=== PATIENT | female | born 1995 | race Caucasian/White ===

== ENCOUNTER 2019-09-13 09:38 | Outpatient (RCR) | payer OTHER, MEDICAID, SELFPAY ==
[2019-09-15] MEDS: RHO(D) IMMUNE GLOBULIN 300 MCG SYRINGE IM (14:33)
== END 2019-12-12 23:59 | disposition home or self-care (01) ==
LOC: ANHLAB 09:38
PROVIDERS: Visit Provider Advanced Practice Midwife
DX: O26.859 Spotting complicating pregnancy, unspecified trimester (principal); Z29.13 Encounter for prophylactic Rho(D) immune globulin; O36.0990 Maternal care for other rhesus isoimmunization, unspecified trimester, not applicable or unspecified; Z3A.00 Weeks of gestation of pregnancy not specified
CPT/HCPCS: 36415; 86900; 86901; 90384; 96372; J2790

== ENCOUNTER 2019-11-24 10:14 | Outpatient (CLI) | payer BC, OTHER, MEDICAID, SELFPAY ==
--- NOTE | 2019-11-24 10:55 | PC.NURSE ---
Laure Garcia notified of c/o leaking and negative ROM plus. OK to dc home.
[2019-11-24 10:58] VITALS: BP 100/58; PULSE 81
== END 2019-11-24 11:05 | disposition home or self-care (01) ==
PROVIDERS: Family Provider Advanced Practice Midwife; Visit Provider Advanced Practice Midwife
DX: O41.8X90 Other specified disorders of amniotic fluid and membranes, unspecified trimester, not applicable or unspecified (principal)
CPT/HCPCS: 59025; 84112

== ENCOUNTER 2019-12-08 14:57 | Outpatient (CLI) | payer OTHER, MEDICAID, SELFPAY ==
--- NOTE | ~2019-12-08 | US_ITS ---
EXAMINATION: US OB limited w BPP DATE: 12/08/2019 16:37 INDICATION: Leaking amniotic fluid during third trimester TECHNIQUE: Real-time pelvic ultrasound was performed. The interpreting radiologist was not present fo r the study. COMPARISON: None. FINDINGS: There is a single living fetus in vertex presentation. The placenta is anterior. heart rate is 161 beats per minute (bpm). The amniotic fluid index is 16.8 cm which is normal. Biophysical profile performed by the technologist: breathing (30 sec sustained breathing in 30 minutes): 2 out of 2 movement (3 gross body movements in 30 minutes): 2 out of 2 tone (one episode of cuudzxn-ikczvuzuy-hrudogp limb movement): 2 out of 2 Amniotic fluid pocket (2 cm): 2 out of 2 Total score: 8 out of 8 IMPRESSION: 1. Single living fetus in vertex presentation. 2. Biophysical profile 8 out of 8. 3. Normal amniotic fluid index. Reviewed, dictated and finalized at location A.
[2019-12-08 15:34] VITALS: PULSE 92; O2SAT 99
[2019-12-08 15:39] VITALS: PULSE 93; O2SAT 99
[2019-12-08 15:44] VITALS: PULSE 93; O2SAT 99
--- NOTE | 2019-12-08 16:05 | PC.NURSE ---
Ashley Garcia CNM informed of pt's arrival with c/o a large gush of fluid around 2330 last night and her underwear felt wet again as she was coming in. ROM plus was negative. FHT's were reactive, but 1 min variable down to 95-110 was noted. Decel started after a contraction had totally resolved. Informed of cxns. Order received for BPP and GAUTAM.
[2019-12-08 16:54] VITALS: PULSE 96
== END 2019-12-08 16:00 | disposition home or self-care (01) ==
LOC: ANHOBOP 15:36 → ANHOBPP 15:37
PROVIDERS: Visit Provider Obstetrics & Gynecology
DX: O42.90 Premature rupture of membranes, unspecified as to length of time between rupture and onset of labor, unspecified weeks of gestation (principal); Z3A.00 Weeks of gestation of pregnancy not specified
CPT/HCPCS: 59025; 76815; 76819; 84112; 99199

== ENCOUNTER 2020-01-01 06:15 | Inpatient (IN) | payer OTHER, MEDICAID, SELFPAY ==
[2020-01-01] VITALS (166 sets, daily range): BP systolic 77–119; BP diastolic 44–81; PULSE 54–97; RESP 18; TEMP 36.4–37; O2SAT 93–100; BMI 26.5
[2020-01-01 07:05] LABS: Basophils Percent Auto 0.3 % (0.2-1.2); Eosinophils Absolute Auto 0.1 K/mm3 (0-0.3); Eosinophils Percent Auto 1.6 % (0-4.4); Hematocrit 27.4 % (37.0-47.0); Hemoglobin 8.2 g/dL (12.0-15.0); Immature Granulocyte Absolute 0.03 K/mm3 (0.00-0.031); Immature Granulocyte Percent A 0.5 % (0-0.5); Lymphocytes Absolute Auto 1.84 K/mm3 (0.9-3.2); Mean Corpuscular HGB Conc 29.9 g/dl (32-36); Mean Corpuscular Hemoglobin 22.3 pg (26-34); Mean Corpuscular Volume 74.7 fl (80-100); Mean Platelet Volume 10.4 fl (7.4-10.4); Monocytes Absolute Auto 0.4 K/mm3 (0.1-0.6); Monocytes Percent Auto 6.2 % (2.6-8.5); Neutrophils Percent Auto 62.4 % (45.5-73.1); Platelet Count Result 263 k/mm3 (150-375); Red Blood Count 3.67 M/mm3 (4.2-5.4); Red Cell Distribution Width 16.6 % (11.5-14.5); White Blood Count 6.3 K/mm3 (4.5-10.0)
[2020-01-01] MEDS: LACTATED RINGERS 1,000 ML 125 ML IV CONT ×3 (07:07→13:44)
[2020-01-01] MEDS: OXYTOCIN 30 UNITS/NS 500 ML 30 UNITS/500 ML BAG IV CONT (07:15)
[2020-01-01 07:16] LABS: Platelet Estimate Adequate (Adequate)
[2020-01-01 07:18] LABS: Hypochromasia 1+ (NORMAL)
--- NOTE | 2020-01-01 07:39 | LDADM ---
This patient, Maru Jones, was admitted to Labor/Delivery/Recovery 106 on 01/01/20 at 06:15. Plans for labor, pain management and were discussed with patient. Patient/family oriented to hospital policies and general routines including ID bracelet, bed and alarms, visiting hours, pain management, procedures, bathroom and other care routines, personal items, smoking policy, room service/diet and guest tray routines, infant security routines, and visiting hours. Patient/Family are encouraged to report perceived risks to care and to ask questions if they do not understand what they are told or what they should do. See OBIX for further documentation.
--- NOTE | 2020-01-01 08:31 | WPDOBADMIT ---
Obstetrics - Admit Note Admission Note: 24 y/o @ 39 weeks 1 day here for elective induction of labor. Bright light exam negative Cervix 1-2/50/-2 AROM moderate amount of clear odorless fluid Anticipate record reviewed. No pertinent additions to the history and/or any subsequent changes in the physical findings that are not consistent with the expected course of the were found. Additions to the history and/or subsequent changes in the physical findings follow. None.
[2020-01-01 08:50] LABS: Rapid Plasma Reagin Non-Reactive (NonReactive)
--- NOTE | 2020-01-01 09:06 | WPDANESEPP ---
Anes - Eval Pre Procedure Procedure: labor epidural Date/Time: 01/01/20 09:06 Surgeon: rafita Preop Diagnosis: pain during labor Pre Op Diagnosis: Induction of Labor Patient Data Age: 24 Gender: F Height: 1.6 m Weight: 68 kg Last Vital Signs Temp 36.6 C 01/01/20 07:15 Pulse 70 01/01/20 09:00 BP 102/74 01/01/20 09:00 Allergies Allergy/AdvReac Type Severity Reaction Status Date / Time No Known Allergies Allergy Verified 12/27/19 18:05 Home Medications Medication Instructions Recorded Confirmed Type [id number] oil 1 tablet PO DAILY 12/27/19 12/27/19 History [ Gummy] buspirone 7.5 mg PO BID 12/27/19 12/27/19 History citalopram 20 mg PO DAILY 12/27/19 12/27/19 History ferrous sulfate 325 mg PO BID 12/27/19 12/27/19 History fluticasone propionate 1 spray INTRANASAL DAILY 12/27/19 12/27/19 History Laboratory Tests 01/01/20 01/01/20 01/01/20 06:56 06:56 06:56 WBC 6.3 K/mm3 K/mm3 (4.5-10.0) RBC 3.67 M/mm3 L M/mm3 (4.2-5.4) Hgb 8.2 g/dL L g/dL (12.0-15.0) Hct 27.4 % L % (37.0-47.0) MCV 74.7 fl L fl (80-100) MCH 22.3 pg L pg (26-34) MCHC 29.9 g/dl L g/dl (32-36) RDW 16.6 % H % (11.5-14.5) Plt Count 263 k/mm3 k/mm3 (150-375) MPV 10.4 fl fl (7.4-10.4) Immature Gran % (Auto) 0.5 % % (0-0.5) Neut % (Auto) 62.4 % % (45.5-73.1) Lymph % (Auto) 29.0 % % (18.3-44.2) Cooper % (Auto) 6.2 % % (2.6-8.5) Eos % (Auto) 1.6 % % (0-4.4) Baso % (Auto) 0.3 % % (0.2-1.2) Lymph # (Auto) 1.84 K/mm3 K/mm3 (0.9-3.2) Cooper # (Auto) 0.4 K/mm3 K/mm3 (0.1-0.6) Eos # (Auto) 0.1 K/mm3 K/mm3 (0-0.3) Baso # (Auto) 0.0 K/mm3 K/mm3 (0.0-0.1) Abs Immat Gran (auto) 0.03 K/mm3 K/mm3 (0.00-0.031) Absolute Neuts (auto) 4.0 K/mm3 K/mm3 (1.3-6.7) Absolute Nucleated RBC 0.0 K/mm3 K/mm3 (0.0-0.012) Nucleated RBC % 0.0 % % (0.0-0.2) Platelet Estimate Adequate (Adequate) Hypochromasia 1+ (NORMAL) RPR Non-reactive (NonReactive) Blood Type A Negative Antibody Screen Negative Patient hx anesthesia problems: none Family hx anesthesia problems: none PMFSH Family History Family History (Updated 12/27/19 @ 18:11 by Naomi Casillas RN) Grandparent Hypertension Mother Anxiety and depression Father Anxiety and depression Sibling Anxiety and depression Social History Social History Smoking status: Never smoker Second hand tobacco smoke exposure: No Alcohol intake: never Substance use: never Spiritual care concerns: No Exam Day of Procedure 01/01/20 09:06
[2020-01-01] MEDS: PHENYLEPHRINE 1,000 MCG/10 ML SYRINGE 100 MCG IV PUSH (10:30)
--- NOTE | 2020-01-01 15:38 | PM.OBPRVD ---
OB - Delivery Note Procedure Delivery date: 01/01/20 Intrapartal events: None Induction method: per pitocin protocol Delivery monitor: external FHT and external uterine Route of delivery: Episiotomy description: None Laceration description: None Estimated blood loss (mL): 62 Anesthesia type: Epidural Baby Date of : 01/01/20 Time of : 15:14 Weeks of gestation at delivery: 39 Infant gender: Female Weight (pounds): 7 Weight (ounces): 5 presentation: vertex position: Left Occiput Anterior Placenta delivery description: Spontaneous score one minute: 9 score five minutes: 9
[2020-01-01] MEDS: OXYTOCIN 30 UNITS/NS 500 ML 30 UNITS/500 ML BAG 125 UNITS IV CONT (15:55)
--- NOTE | 2020-01-01 18:40 | OBPPTRN ---
Patient transferred to post room #282 via wheelchair. Support person present. Oriented to unit, room, information board, rooming in, admission packet and security measures. Patient verbalizes understanding.
--- NOTE | 2020-01-01 18:40 | OBPPTRN ---
Patient transferred to post room # via ( ). Support person present. Oriented to unit, room, information board, rooming in, admission packet and security measures. Patient verbalizes understanding.
[2020-01-01] MEDS: IBUPROFEN 600 MG TABLET PO (20:13)
[2020-01-01] MEDS: WITCH HAZEL 40 PADS 1 PAD TOPICAL (20:14)
[2020-01-01] MEDS: BENZOCAINE 20% AER SPR (*SP) 56 GM CAN 1 SPRAY TOPICAL (20:14)
[2020-01-01] MEDS: LANOLIN (LANSINOH) 7.5 GM CREAM 1 APPLIC TOPICAL (20:15)
[2020-01-02] MEDS: IBUPROFEN 600 MG TABLET PO ×4 (02:43→22:45)
[2020-01-02 05:25] LABS: Hematocrit 27.1 % (37.0-47.0)
--- NOTE | 2020-01-02 07:25 | PM.OBPNVD ---
OB - PN: Subj Subjective Date/time seen: 01/02/20 07:25 Patient comments: no complaints baby status: doing well OB - PN: Obj Data Labs CBC & Chem 7: 01/02/20 04:31 Labs: Laboratory Results - last 24 hr 01/01/20 01/01/20 01/02/20 06:56 06:56 04:31 Hgb Hct RPR Non-reactive Blood Type A Negative A Negative Antibody Screen Negative TNP Screen Negative Baby's Blood Type Ab pos Baby's TREMAINE Negative Doses of RhIg Required 1 01/02/20 04:31 Hgb 8.0 L Hct 27.1 L RPR Blood Type Antibody Screen Screen Baby's Blood Type Baby's TREMAINE Doses of RhIg Required OB - PN A/P Plan day: 1 Plan: routine care Time Spent With Patient Time: Total time spent is greater than 50% in coordination of care (as documented) at patient's floor/unit and/or counseling patient: Exam Const: General: comfortable Psych: Appearance: grossly normal Affect: normal affect Judgement: Good judgement present (Psych)
[2020-01-02 08:00] VITALS: BP 104/67; PULSE 70; RESP 18; TEMP 36.7; O2SAT 99
[2020-01-02] MEDS: DOCUSATE SODIUM 100 MG CAPSULE PO ×2 (09:48→16:06)
[2020-01-02] MEDS: POLYSACCHARIDE IRON COMPLEX 150 MG CAPSULE PO ×2 (09:48→16:06)
[2020-01-02] MEDS: MULTIVIT/MIN/PREN/FOL AC/IRON TABLET 1 TAB PO (09:48)
[2020-01-02] MEDS: ACETAMINOPHEN 325 MG TABLET 650 MG PO (13:51)
--- NOTE | 2020-01-02 14:00 | PC.NURSE ---
Consulted with patient, mother has at breast in cradle positioning in a shallow latch reporting tenderness with feeding. Reviewed feeding cues, frequencies, duration of feedings, feeding elimination flow sheet, and signs of adequate intake. Reviewed positioning/alignment in cross cradle, holding breast in U hold and guided asymmetrical latch on. Discussed rational for each. Infant was able to latch correctly. Mother quickly reported she could feel was latched more deeply and had no discomfort. nursed eagerly, with steady draws and frequent swallowing noted. Reviewed signs of a correct latch, effective nursing and suck swallow ratio. Infant was able to maintain latch without discomfort to mother. Nipple care reviewed. Suggested mother stimulate while feeding to keep awake and nursing effectively for increased intake and to assist with maintaining deep latch. Demonstrated how to adjust latch more deeply while feeding. Instructed mother to call out for RN assistance if she is unable to latch for feeding or she has discomfort with nursing. Instructed feeding should be initiated three hours from start of last feeding or if feeding cues are noted before. Mother voiced understanding of information shared.
--- NOTE | 2020-01-02 15:06 | WPDANLDPN2 ---
Anes-Prog Note L&D Date/Time: 01/02/20 15:06 Comfortable throughout: labor and delivery Neuraxial method: epidural Epidural/Spinal procedure site: clean & non-tender Neuro status: Neuro function grossly intact. Cardiovascular status: normal Respiratory status: normal Airway patency: baseline Mental status: baseline Post-Op hydration status: normal Vital Signs: Last Vital Signs Temp 98.0 F 01/02/20 08:00 Pulse 70 01/02/20 08:00 Resp 18 01/02/20 08:00 BP 104/67 01/02/20 08:00 Pulse Ox 99 01/02/20 08:00 I/O: Intake & Output 01/01/20 01/02/20 01/02/20 23:59 07:59 15:59 Intake Total 240 Output Total 25 Balance -25 240 Post-procedural complaints: none Patient feedback: Patient satisfied with anesthetic care.
[2020-01-02] MEDS: RHO(D) IMMUNE GLOBULIN 300 MCG SYRINGE IM (15:46)
[2020-01-02 19:20] VITALS: BP 100/61; PULSE 83; RESP 16; TEMP 37; O2SAT 99
--- NOTE | 2020-01-02 22:00 | PC.NURSE ---
Patient viewed the discharge video Mother & Baby Care, The First Two Weeks . Patient was given the opportunity and encouraged to ask questions. Patient verbalized understanding of information shared and has been given the mother/baby guide for home reference.
[2020-01-03] MEDS: MULTIVIT/MIN/PREN/FOL AC/IRON TABLET 1 TAB PO (07:38)
[2020-01-03] MEDS: POLYSACCHARIDE IRON COMPLEX 150 MG CAPSULE PO (07:38)
[2020-01-03] MEDS: DOCUSATE SODIUM 100 MG CAPSULE PO (07:38)
[2020-01-03] MEDS: IBUPROFEN 600 MG TABLET PO (07:38)
--- NOTE | 2020-01-03 08:25 | PM.OBPNVD ---
OB - PN: Subj Subjective Date/time seen: 01/03/20 08:25 OB - PN: Obj Data Labs CBC & Chem 7: 01/02/20 04:31 Labs: Laboratory Results - last 24 hr 01/02/20 04:31 Blood Type A Negative Antibody Screen TNP Screen Negative Baby's Blood Type Ab pos Baby's TREMAINE Negative Doses of RhIg Required 1 OB - PN A/P Plan day: 2 Plan: routine care and discharge home (Follow up in 4 weeks) Time Spent With Patient Time: Total time spent is greater than 50% in coordination of care (as documented) at patient's floor/unit and/or counseling patient: Time with patient: less than 15 minutes Review of Systems Review of Systems: All systems reviewed & are unremarkable except as noted in HPI and below Exam Narrative: Exam Narrative: Fundus firm and vaginal flow controlled. Const: General: comfortable Chest: Breast/axilla inspection: normal inspection of the breasts Resp: Effort & Inspection: normal respiratory effort Cardio: Rate: regular rate Psych: Appearance: grossly normal Affect: normal affect Attitude: cooperative Judgement: Good judgement present (Psych)
[2020-01-03 08:30] VITALS: BP 115/71; PULSE 70; RESP 18; TEMP 36.8; O2SAT 99
--- NOTE | 2020-01-03 09:30 | PC.NURSE ---
Mother is able to independently latch infant with appropriate positioning/alignment. She denies any nipple discomfort, is feeding as required and waking to feed if needed. has had at least 8 effective feedings in the past 24 hours, and is currently meeting outcomes for weight, output, jaundice and feeding frequencies. Mother states she feels confident to continue effective at home. Reviewed transition to breast milk, signs of adequate intake, and engorgement/relief. Instructed to call ICP if intake/output less than required. Reviewed regular medications mother is taking. Information provided per Nancy. Reviewed community resources on the [facility] website and in the Mom/Baby guide. Information on outpatient services provided. Mother has no further questions at this time.
[2020-01-03] MEDS: ACETAMINOPHEN 325 MG TABLET 650 MG PO (13:06)
[2020-01-05 09:24] VITALS: BP 102/61; PULSE 79; RESP 20; TEMP 36.7; O2SAT 100
--- NOTE | 2020-01-06 21:43 | PM.OBDSVD ---
DS: Admitting Diagnosis Admitting Diagnosis Admitting Diagnosis: Encounter for supervision of normal , unspecified, third trimester OB - DS: Summary OB Procedures : None OB Procedures Intrapartum: Spontaneous Vag Delivery OB Procedures: : None Time Spent with Patient Time attestation: Total time spent providing and/or coordinating discharge services: Discharge Plan Discharge Attending physician on discharge: Winsome Garcia Consulting providers: Winsome Garcia ; Jinny Hrary Discharging Clinician: Winsome Garcia Patient Disposition: Home, Self-Care Activity: pelvic rest Diet: as tolerated Discharge Instructions: Education: Mom and Baby Guide Given to: Patient Follow-Up: Call your delivering provider's office for an appointment to be seen in: 4 weeks Mom and baby should come to the [facility] for the follow-up appointment. Appointment Date/Time: Wednesday01/05/2020 at 9:00 am Call [phone] if you are unable to keep your appointment time. BREAST CARE: 1. Wear a snug supportive bra. 2. For engorgement discomfort: Breast Feeding: A. Apply warm moist washcloths B. Express milk as needed to relieve engorgement C. Wear loose clothing Bottle Feeding: A. May apply ice packs 3. For sore nipples: A. Identify correct latch-on B. Apply warm moist washcloths before and after nursing C. Air dry nipples after nursing D. May apply Lansinoh cream to nipples EPISIOTOMY/PERINEAL CARE: 1. Until bleeding stops, use your jennifer bottle after urinating 2. Change your pad frequently throughout the day 3. You may take sitz baths several times a day (fill your bathtub with warm water and soak for 20 minutes.) Do NOT bathe in the water 4. No tub baths until seen by your physician - You may shower ACTIVITY: 1. Rest as much as possible. 2. Do not exercise or lift anything heavier than your baby (such as laundry or other children.) 3. Avoid stairs or driving as much as possible. 4. Do not put anything into the vagina. No douching, tampons, or sexual activity until seen by physician. NOTIFY PHYSICIAN IF YOU HAVE ANY QUESTIONS OR IF ANY OF THE FOLLOWING SYMPTOMS OCCUR: 1. If your episiotomy or incision becomes red, swollen, or more painful than what you have experienced in the hospital. 2. If your vaginal bleeding becomes foul smelling. 3. If your vaginal bleeding becomes more heavy than a period or if your bleeding changes from pink to bright red. However, you may pass an occasional walnut-sized clot once or twice for the first week . 4. If you experience a sharp, shooting pain in you calves. 5. If you discover a hard, reddened area on your breast or if you experience flu-like symptoms. DIET: 1. Eat regular, well-balanced meals. 2. Drink plenty of fluids daily. If , drink to thirst. Follow-up/Referrals: Winsome Garcia CNM [Certified Nurse Accounting Machine Mechanic] - Discharge Medications: Continued citalopram 20 mg tablet 20 mg PO DAILY RF: 0 ferrous sulfate 325 mg (65 mg iron) Tablet 325 mg PO BID RF: 0 buspirone 7.5 mg tablet 7.5 mg PO BID RF: 0 fluticasone propionate 50 mcg/actuation spray,suspension 1 spray INTRANASAL DAILY RF: 0 Gummy 400 mcg-35 mg -25 mg-5 mg Tablet,Chewable 1 tablet PO DAILY RF: 0 Date of admission: 01/01/20 06:15 Primary Care Provider: PHYSICIAN,BIOMEDICAL TECHNICIAN Admitting Provider: Mica Chaidez Discharge Date/Time: 01/03/20 13:46 Attending physician on admission: Mica Chaidez
== END 2020-01-03 13:46 | disposition home or self-care (01) | DRG 807 ==
LOC: ANHLDR 06:19 → ANHOB2 18:51
PROVIDERS: Advanced Practice Midwife; Admitting Provider Obstetrics & Gynecology; Visit Provider Obstetrics & Gynecology
DX: O80 Encounter for full-term uncomplicated delivery (principal); Z37.0 Single live birth; Z3A.39 39 weeks gestation of pregnancy
CPT/HCPCS: 36415; 85014; 85018; 85025; 85461; 86592; 86850; 86900; 86901; 90384; A9270; J2370; J2590; J2790; J2795; J7120

== ENCOUNTER 2021-04-17 19:13 | Emergency (ER) | payer OTHER, MEDICAID, SELFPAY ==
[2021-04-17 19:19] VITALS: BP 96/64; PULSE 85; RESP 16; TEMP 37; O2SAT 98
--- NOTE | 2021-04-17 19:29 | ED.PSYCH ---
HPI - Psych General Chief Complaint: Psychiatric Symptoms Stated Complaint: temp medication for mental health Time Seen by Provider: 04/17/21 19:30 Source: patient Mode of arrival: ambulatory Limitations: no limitations History of Present Illness HPI Narrative: Maru Jones is a 25 yo female with a PMH of depression and anxiety who has not had any medication for the last year and is here because she is feeling depressed. She has not been to see her doctor has been in bed for the last basically 2 weeks with her sister taking care of her [id number] child. She denies any intention for self-harm or homicide. Patient is here for restart on her medication Related Data Allergies Allergy/AdvReac Type Severity Reaction Status Date / Time No Known Allergies Allergy Verified 04/17/21 19:28 Review of Systems Review of Systems: CONSTITUTIONAL: Denies fever, chills, sweats. EYES: Denies visual changes, redness, discharge. ENT: Denies rhinorrhea, congestion, sore throat, otalgia. CARDIOVASCULAR: Denies chest pain, palpitations, edema. RESPIRATORY: Denies dyspnea, wheezing, cough GASTROINTESTINAL: Denies abdominal pain, nausea, vomiting, diarrhea. GENITOURINARY: Denies dysuria, hematuria, abnormal discharge SKIN: Denies rash or itching. NEUROLOGIC: Denies numbness, or focal weakness. PSYCHIATRIC: Has depression. PMFSH Past Medical History Medical History Anxiety Depression Family History Family History Grandparent Hypertension Mother Anxiety and depression Father Anxiety and depression Sibling Anxiety and depression Social History Social History Smoking status: Never smoker Second hand tobacco smoke exposure: No Alcohol intake: never Substance use: never Substance use type: does not use Spiritual care concerns: No Comments At time of signature, I agree with nursing past medical, surgical, social and family history. There is no relevant family history pertinent to the presenting complaint. Exam Narrative: GENERAL: This is a well-nourished, well-developed patient, in mmoderate distress. HEAD: normocephalic, atraumatic. EYES: Sclera clear/white. Vision is grossly intact. EARS: External ears normal, auditory canals clear and without drainage, TMs normal without perforation. Hearing grossly intact. NOSE: External nose normal without nasal discharge, nares without redness, no rhinorrhea. THROAT: Mucous membranes moist, posterior pharynx NECK: Neck supple, non-tender CARDIOVASCULAR: Regular rate and rhythm without murmurs, gallops, or rubs. RESPIRATORY: Clear to auscultation. Breath sounds equal bilaterally. No wheezes, rales, or rhonchi. GASTROINTESTINAL: Abdomen soft, non-tender, SKIN: warm, intact with no suspicious lesions or rash, good texture and turgor. NEURO: awake, alert, and oriented to person, place and time. There were no obvious focal neurologic abnormalities. Steady gait EXTREMITIES: Normal range of motion. BACK: Nontender without deformity Psych patient is depressed but affect is flat says that her depression is fairly bad for her her own experience Course Course Emergency Course: Patient comes to [facility] to get restarted on antidepressants as she has been sleeping for the last 2 weeks and has been on the medication for months her psychiatrist and her primary care doctor are no longer in the system and she is to call [facility] tomorrow to get a new assignment are waiting list for psychiatrist. She will be given the list of PCPs and given indication which ones are accepting patients associate except compliant with them. In the meantime should be restarted on Celexa 20 mg which is a starting dose for Celexa for depression; she understands that I will not prescribe BuSpar since I am not following up with her Vital Signs V
== END 2021-04-17 19:45 | disposition home or self-care (01) ==
PROVIDERS: Emergency Provider Nurse Practitioner
DX: F33.1 Major depressive disorder, recurrent, moderate (principal)
CPT/HCPCS: 99213; G0463